=== PATIENT | female | born 1970 | race Caucasian/White ===

== ENCOUNTER → 2018-11-15 | Outpatient (CLI) | payer OTHER | LOC: BRMIMAGING 13:06 | PROVIDERS: ATTEND Nurse Practitioner | DX: N83.201 Unspecified ovarian cyst, right side (principal); Z90.710 Acquired absence of both cervix and uterus | CPT/HCPCS: 76856-PO ==

== ENCOUNTER → 2018-12-02 | Outpatient (CLI) | payer OTHER | LOC: CIMAGING 09:16 | PROVIDERS: ATTEND Nurse Practitioner | DX: R91.8 Other nonspecific abnormal finding of lung field (principal) | CPT/HCPCS: 71250-PO ==